=== PATIENT | male | born 1990 | race American Indian/Alaskan Native ===

== ENCOUNTER 2019-11-06 16:56 | Emergency (ER) | payer OTHER ==
[2019-11-07 01:21] VITALS: BP 101/65
[2019-11-07] MEDS ORDERED: IBUPROFEN 800 MG TAB PO ONE (02:03)
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
== END 2019-11-07 03:30 | disposition home or self-care (01) ==
LOC: ED 16:56
DX: S39.012A Strain of muscle, fascia and tendon of lower back, initial encounter (principal); S13.4XXA Sprain of ligaments of cervical spine, initial encounter; Z79.899 Other long term (current) drug therapy; V49.49XA Driver injured in collision with other motor vehicles in traffic accident, initial encounter; Y93.89 Activity, other specified; Y92.410 Unspecified street and highway as the place of occurrence of the external cause; Y99.8 Other external cause status
CPT/HCPCS: 72040; 72100

== ENCOUNTER 2020-06-26 11:27 | Emergency (ER) | payer SELFPAY ==
[2020-06-26 11:42] VITALS: BP 109/62
--- NOTE | 2020-06-26 11:50 | Emergency Department Report ---
Chief Complaint: Nausea/Vomiting/Diarrhea Stated Complaint: TEMP CHECK Time Seen by Provider: 06/26/20 11:46 - HPI History of Present Illness: 30-year-old immunocompetent male patient presents to the emergency department with complaints of 2 episodes of nonbloody emesis occurring this morning. Patient states that he is currently asymptomatic. His employer sent him to the emergency department for evaluation. No known sick contacts. No current steroid or antibiotic use. No history of abdominal surgeries. No recent travel. Denies fever, chills, abdominal pain, hematemesis, diarrhea, constipation, back pain, urinary symptoms. Denies all other complaints at this time. - ROS Review of Systems: GENERAL: Negative for fever. CARDIOVASCULAR: Negative for chest pain. PULMONARY: Negative for shortness of breath. GASTROINTESTINAL: Positive for nausea and vomiting MUSCULOSKELETAL: Negative for back pain. NEUROLOGICAL: Negative for headache. INTEGUMENTARY: Negative for rash. - Exam Vital Signs: Vital Signs 06/26/20 11:39 Temperature 98.3 F Pulse Rate 64 Respiratory 16 Rate Blood Pressure 109/62 O2 Sat by Pulse 99 Oximetry Physical Exam: General: Awake, appropriately interactive, no acute distress. Neck: Supple. Full range of motion intact. Cardiovascular: Normal peripheral perfusion. Pulmonary: No respiratory distress. Patient is speaking normally without use of accessory muscles. Abdomen: Soft, nontender, nondistended. Skin: No apparent rashes or lesions. Neurological: No facial asymmetry. Speech is clear. Follows commands. Patient is alert and oriented. Musculoskeletal: Moves all four extremities spontaneously with normal range of motion. Psych: Cooperative. Appropriate mood and affect. MSE screening note: Focused history and physical exam performed. Due to findings the following was ordered: ED Medical Decision Making - Medical Decision Making Patient presents to the emergency department at the instruction of his employer to be cleared to return to work following 2 episodes of nonbloody emesis this morning. Patient is currently asymptomatic. States he feels as though he has returned to his baseline. Vital signs are stable. He is afebrile. He appears well-hydrated. No clinical indication for further diagnostic work-up on an emergent basis at this time. Patient will be discharged home with a prescription for Zofran and referred to local primary care provider. Patient expressed understanding is agreeable to plan of care. Strict return precautions provided. BILLING/CODING: Please note this patient encounter does not represent a certified medical emergency. ED Disposition for MSE Clinical Impression: Vomiting Qualifiers: Vomiting type: unspecified Vomiting Intractability: non-intractable Nausea presence: unspecified Qualified Code(s): R11.10 - Vomiting, unspecified Disposition: MED SCREENING EXAM-LEFT Is pt being admited?: No Does the pt Need Aspirin: No Condition: Stable Instructions: Vomiting, Adult Additional Instructions: Take Zofran as needed for nausea/vomiting. Rest. Drink plenty fluids. Wash hands frequently to prevent disease transmission. Do not share food or drinks with others. Follow-up with Dr. Spencer, primary care provider, this week. Call today to schedule an appointment. Return to the emergency department immediately for new or worsening symptoms. Specifically, return to the emergency department immediately for fever, abdominal pain, increased vomiting, diarrhea, dehydration, mental status changes, rash, or any other concerns. Prescriptions: Ondansetron [Zofran Odt] 4 mg PO Q4H #20 tab.rapdis Referrals: XOCHITL SPENCER MD [Staff Physician] - 3-5 Days Forms: Work/School Release Form(ED) Time of Disposition: 11:50
== END 2020-06-26 12:34 | disposition left against medical advice (07) ==
LOC: ED 11:27
DX: Z00.8 Encounter for other general examination (principal); Z53.21 Procedure and treatment not carried out due to patient leaving prior to being seen by health care provider